=== PATIENT | female | born 1995 | race Caucasian/White ===

== ENCOUNTER 2017-04-30 17:58 | Emergency (ER) | payer SELFPAY ==
[~2017-04-30] VITALS: Ht 162.6 cm; Wt 105.2 kg
[~2017-04-30 17:58] MED LIST: AMOX500T10 PO; HYDR-4309 PO; LEVO-3 PO; METF-410 PO; NAPR375T44 PO; ONDA4TAB97 PO; SULF-198 PO
--- NOTE | 2017-04-30 18:01 | ER Report ---
History and Physical Time Seen By MD: 18:01 HPI/ROS CHIEF COMPLAINT: Right lower dental pain HISTORY OF PRESENT ILLNESS: 21-year-old female presents ambulatory to the ER complaining of right lower dental pain for 3 days. She notes no fever, chills or difficulty swallowing. She has a filling in the tooth at position #31. She notes a dull 6/10 throbbing pain. She's been taking Tylenol without relief. 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 She has an allergy to tramadol. She is also requesting a refill of her seizure medication gabapentin 1200 mg by mouth twice a day. REVIEW OF SYSTEMS: Respiratory: No cough, no dyspnea. Cardiovascular: No chest pain, no palpitations. Gastrointestinal: No vomiting, no abdominal pain. Musculoskeletal: No back pain. Allergies: Coded Allergies: amoxicillin (Verified Allergy, Intermediate, HIVES, 04/30/17) naproxen (Verified Allergy, Intermediate, 04/30/17) EYES SWELL UP tramadol (Verified Allergy, Intermediate, HIVES, 04/30/17) Home Meds Active Scripts Oxycodone Hcl/Acetaminophen (PERCOCET 5-325 MG TABLET) 1 Each Tablet, 1 EACH PO Q4-6H Y for PAIN, #10 Prov:NATALIIA HAYS DO 04/30/17 Clindamycin Hcl (CLINDAMYCIN HCL) 300 Mg Capsule, 300 MG PO TID for infection, # 4030 CAPSULE Prov:NATALIIA HAYS Tyler DO 04/30/17 Gabapentin (GABAPENTIN) 600 Mg Tablet, 1200 MG PO BID for seizure prevention, # 120 Prov:NATALIIA HAYS DO 04/30/17 Reported Medications Warfarin Sodium (WARFARIN SODIUM) 7.5 Mg Tablet, 7.5 MG PO QDAY, TAB 04/30/17 Gabapentin (GABAPENTIN) 300 Mg Capsule, 600 MG PO TID, CAPSULE 04/30/17 Metformin Hcl (METFORMIN HCL) 500 Mg Tablet, 1 TAB PO QDAY, TAB 04/09/17 Levothyroxine Sodium (LEVOTHYROXINE SODIUM) 100 Mcg Tablet, 100 MCG PO QDAY, TAB 04/09/17 Discontinued Scripts Amoxicillin 500 Mg Tab (AMOXICILLIN 500 MG TAB) 500 Mg Tablet, 2 TAB PO DAILY, #20 TAB Prov:KATHI FRANKLINP-BC 03/13/17 Ondansetron Hcl (ZOFRAN) 4 Mg Tablet, 4 MG PO Q8H for Nausea, #15 TAB 0 Refills Prov:AMANDA JAMISON MD 12/20/16 Naproxen (NAPROXEN) 375 Mg Tablet, 375 MG PO TID for PAIN, #15 TAB 0 Refills Prov:AMANDA JAMISON MD 12/20/16 Past Medical/Surgical History Patient has a past medical surgical history of seizures, migraines, DVTs, asthma , sleep apnea, one kidney, right leg fracture, low back injury, back pain, type II diabetes, appendectomy, tonsillectomy. Reviewed Nurses Notes: Yes Old Medical Records Reviewed: Yes Hx Substance Use Disorder: No Hx Alcohol Use: No Constitutional Vital Sign - Last 24 Hours 04/30/17 18:02 Temp 97.4 Pulse 96 Resp 14 B/P (MAP) 121/76 Pulse Ox 93 O2 Delivery Room Air Physical Exam Vital signs stable, afebrile, pulse ox normal General Appearance: The patient is alert, has no immediate need for airway protection and no current signs of toxicity. Mild distress HEENT: Pupils equal and round no injection. TMs normal, TMJs nontender. Examination of the oropharynx reveals a tooth with a large filling at position # 31. There is no surrounding gum inflammation. The tooth is tender on percussion with a tongue blade. There is no other oral pharyngeal swelling noted. Respiratory: Chest is non tender, lungs are clear to auscultation. Cardiac: regular rate and rhythm Musculoskeletal: Neck: Neck is supple and non tender. No induration. Neck tissues or lymphadenopathy noted Extremities have full range of motion and are non tender. Skin: No rashes or lesions. DIFFERENTIAL DIAGNOSIS: After history and physical exam differential diagnosis was considered for toothache, dental abscess, TMJ disorder, Robert myelitis of the jaw, lymphadenopathy. Medical Decision Making ED Course/Re-evaluation ED Course Patient was admitted to an examination room. H&P was done. The differential diagnoses was considered. On clinical examination, patient appears to have dental pain in the right lower jaw. There is tenderness with percussion of the tooth. There is no surrounding inflammation. There is no induration of the neck tissues on examination of the anterior cervical region. Patient unfortunately is unable take NSAIDs due to her chronic lifelong warfarin therapy for recurrent DVT. She's been unsuccessful getting relief with Tylenol. She is given a limited supply of Percocet for temporary pain relief. She has an allergy to amoxicillin. To be given clindamycin. She is advised to follow-up with her dentist as soon as possible. Patient was given a refill of her gabapentin. Decision to Disposition Date: Apr 30, 2017 Decision to Disposition Time: 18:15 Depart Departure Latest Vital Signs Vital Signs Date Time Temp Pulse Resp B/P (MAP) Pulse Ox O2 Delivery O2 Flow Rate FiO2 04/30/17 18:02 97.4 96 14 121/76 93 Room Air Impression: Primary Impression: Pain, dental Additional Impression: Seizure disorder Condition: Improved Disposition: HOME OR SELF-CARE Referrals: SAPPHIRE ORTIZ MD, FARRUKH MD New Scripts Oxycodone Hcl/Acetaminophen (PERCOCET 5-325 MG TABLET) 1 Each Tablet 1 EACH PO Q4-6H Y for PAIN, #10 Prov: NATALIIA HAYS DO 04/30/17 Clindamycin Hcl (CLINDAMYCIN HCL) 300 Mg Capsule 300 MG PO TID for infection, #4030 CAPSULE Prov: NATALIIA HAYS DO 04/30/17 Gabapentin (GABAPENTIN) 600 Mg Tablet 1200 MG PO BID for seizure prevention, #120 Prov: NATALIIA HAYS DO 04/30/17 Patient Instructions: Recurrent Seizures in Adults (ED), Toothache (ED) Additional Instructions: Apply warm compresses to your jaw area Follow-up with your dentist as soon as possible Get established with the primary care doctors listed on her paperwork Problem Qualifiers NATALIIA HAYS DO Apr 30, 2017 18:01
[2017-04-30 18:02] VITALS: BP 121/76
[2017-04-30] MEDS ORDERED: WARF7.5T32 PO (18:08)
[2017-04-30] MEDS ORDERED: GABA-549 PO (18:08)
[2017-04-30] MEDS ORDERED: GABA-503 PO (18:18)
[2017-04-30] MEDS ORDERED: CLIN300C99 PO (18:18)
[2017-04-30] MEDS ORDERED: OXYC-865 PO (18:18)
== END 2017-04-30 18:33 | disposition home or self-care (01) ==
LOC: ER 18:02
DX: K08.89 Other specified disorders of teeth and supporting structures (principal); G40.909 Epilepsy, unspecified, not intractable, without status epilepticus; Z79.01 Long term (current) use of anticoagulants
CPT/HCPCS: 99282

== ENCOUNTER 2017-05-18 15:55 | Emergency (ER) | payer MEDICARE, MEDICAID ==
[~2017-05-18] VITALS: Ht 162.6 cm; Wt 152.9 kg
[~2017-05-18 15:55] MED LIST changes: +CLIN300C99 PO; +GABA-503 PO; +GABA-549 PO; +OXYC-865 PO; +WARF7.5T32 PO
--- NOTE | 2017-05-18 16:03 | ER Report ---
History and Physical Time Seen By MD: 16:02 Hx. of Stated Complaint: UPPER LEFT DENTAL PAIN FOR 3 DAYS. HPI/ROS CHIEF COMPLAINT: Tooth pain HISTORY OF PRESENT ILLNESS: 21-year-old female patient presents to emergency room with complaint of tooth pain. Patient states she's been having pain for last 3 days. She states that she does not have a cavity. She states she does have increased pain with temperature extremes. She's been able to chew with food on the right side of her mouth. She denies having any fevers, chills, nausea, vomiting or diarrhea. She states she's taken Tylenol for this with no improvement. Patient does have an appointment with a dentist on 15 June. Allergies: Coded Allergies: amoxicillin (Verified Allergy, Intermediate, HIVES, 05/18/17) naproxen (Verified Allergy, Intermediate, 05/18/17) EYES SWELL UP tramadol (Verified Allergy, Intermediate, HIVES, 05/18/17) Home Meds Active Scripts Clindamycin Hcl (CLINDAMYCIN HCL) 300 Mg Capsule, 300 MG PO Q6H, #40 CAPSULE Prov:ALESSANDRA SANTO 05/18/17 Reported Medications Metformin Hcl (METFORMIN HCL) 500 Mg Tablet, 1 TAB PO BID, TAB 05/18/17 Gabapentin (GABAPENTIN) 300 Mg Capsule, 600 MG PO BID, CAPSULE 05/18/17 Warfarin Sodium (WARFARIN SODIUM) 7.5 Mg Tablet, 7.5 MG PO QDAY, TAB 04/30/17 Levothyroxine Sodium (LEVOTHYROXINE SODIUM) 100 Mcg Tablet, 100 MCG PO QDAY, TAB 04/09/17 Discontinued Reported Medications Gabapentin (GABAPENTIN) 300 Mg Capsule, 600 MG PO TID, CAPSULE 04/30/17 Metformin Hcl (METFORMIN HCL) 500 Mg Tablet, 1 TAB PO QDAY, TAB 04/09/17 Discontinued Scripts Oxycodone Hcl/Acetaminophen (PERCOCET 5-325 MG TABLET) 1 Each Tablet, 1 EACH PO Q4-6H Y for PAIN, #10 Prov:NATALIIA HAYS DO 04/30/17 Clindamycin Hcl (CLINDAMYCIN HCL) 300 Mg Capsule, 300 MG PO TID for infection, # 4030 CAPSULE Prov:NATALIIA HAYS DO 04/30/17 Gabapentin (GABAPENTIN) 600 Mg Tablet, 1200 MG PO BID for seizure prevention, # 120 Prov:NATALIIA HAYS DO 04/30/17 Past Medical/Surgical History Patient has a past medical history of seizures, migraines, DVT, asthma, sleep apnea, cholecystitis, one kidney, right leg fracture, back pain, diabetes, hypothyroidism. Patient has surgical history of tonsillectomy, appendectomy, cardiac surgery. Reviewed Nurses Notes: Yes Hx Substance Use Disorder: No Hx Alcohol Use: No Constitutional Vital Sign - Last 24 Hours 05/18/17 05/18/17 15:58 17:18 Temp 97.3 Pulse 102 100 Resp 18 B/P (MAP) 138/100 131/71 (91) Pulse Ox 89 91 O2 Delivery Room Air Room Air Physical Exam General appearance: Alert no distress. Respiratory: Chest is non tender, lungs are clear to auscultation. Cardiac: Regular rate and rhythm. ENT: Patient has tenderness to tooth #10. Does appear to be chipped along the top. There is no erythema noted along the gumline. DIFFERENTIAL DIAGNOSIS: After history and physical exam differential diagnosis was considered for dental pain, tooth infection. Medical Decision Making Data Points Laboratory Hematology Test 05/18/17 16:10 Prothrombin Time 15.1 seconds (12.0-14.4) Prothromb Time International Ratio 1.18 Chemistry Test 05/18/17 16:10 Prothrombin Time 15.1 seconds (12.0-14.4) Prothromb Time International Ratio 1.18 Coagulation Test 05/18/17 16:10 Prothrombin Time 15.1 seconds Prothromb Time International Ratio 1.18 ED Course/Re-evaluation ED Course Patient was admitted to examine, history and physical were obtained. Differential diagnoses were considered. On examination patient is complaining of pain to tooth #10. Patient states she's been taking Coumadin in the past. She states she takes it everyday. An INR was checked because she states that has not been checked recently. The INR came back at 1.18. I again spoke with patient's she states that she has been taking. I did request records from [facility], there was indication the patient had a DVT but again that was reported to them by the patient, nothing diagnosed during that visit. As a result of that we will go ahead and have her continue with the Coumadin 7.5, she is to take clindamycin 300 mg one tablet 4 times a day for the next 10 days. I would like her to follow-up with her dentist. We will not be prescribing her any pain medication as she had received a prescription just 5 days ago for 20 of the [place] 5/325. I discussed this with the patient who verbalized understanding and agreement. Decision to Disposition Date: May 18, 2017 Decision to Disposition Time: 16:14 Depart Departure Latest Vital Signs Vital Signs Date Time Temp Pulse Resp B/P (MAP) Pulse Ox O2 Delivery O2 Flow Rate FiO2 05/18/17 17:18 100 131/71 (91) 91 Room Air 05/18/17 15:58 97.3 18 Impression: Primary Impression: Pain, dental Condition: Improved Disposition: HOME OR SELF-CARE New Scripts Clindamycin Hcl (CLINDAMYCIN HCL) 300 Mg Capsule 300 MG PO Q6H, #40 CAPSULE Prov: ALESSANDRA SANTO 05/18/17 Patient Instructions: Toothache (ED) Additional Instructions: You may take Tylenol as well as pain medication was prescribed 5 days ago as needed for pain. Rinse mouth with warm salt water after every meal. Eat soft foods. Follow up with your dentist as soon as possible, call to make an appointment. Continue with your Coumadin. Follow up with your Primary care provider in the next week. I have not been able to get the medical records from [place] and so we will continue with what you are currently doing. Return to the ER if you are having any shortness of breath, increasing pain or swelling in the leg. ALESSANDRA SANTO May 18, 2017 16:03
[2017-05-18] MEDS ORDERED: GABA-549 PO (16:04)
[2017-05-18] MEDS ORDERED: METF-410 PO (16:05)
[2017-05-18 16:33] LABS: INR 1.18
[2017-05-18] MEDS ORDERED: CLIN300C99 PO (16:43)
[2017-05-18 17:18] VITALS: BP 131/71
== END 2017-05-18 17:18 | disposition home or self-care (01) ==
LOC: ER 16:00
DX: K08.89 Other specified disorders of teeth and supporting structures (principal); Z79.01 Long term (current) use of anticoagulants
CPT/HCPCS: 36415; 85610; 99282

== ENCOUNTER 2017-08-14 16:22 | Emergency (ER) | payer MEDICARE, MEDICAID ==
[~2017-08-14 16:22] MED LIST changes: +WARF7.5T13 PO; -WARF7.5T32 PO
[2017-08-14 16:29] VITALS: BP 153/100
[2017-08-14] MEDS ORDERED: LEVO-3 PO (16:32)
[2017-08-14] MEDS ORDERED: AMIT150T21 PO (16:32)
[2017-08-14] MEDS ORDERED: TRAZ150T8 PO (16:32)
[2017-08-14] MEDS ORDERED: WARF5TAB23 PO ×2 (16:32→17:38)
[2017-08-14] MEDS ORDERED: DIVSR125 PO (16:32)
[2017-08-14] MEDS ORDERED: DIVA500T98 PO (16:32)
--- NOTE | 2017-08-14 16:33 | ER Report ---
History and Physical Time Seen By MD: 16:27 HPI/ROS CHIEF COMPLAINT: left hip pain after a fall HISTORY OF PRESENT ILLNESS: Pt states on tuesday she slipped on her wet kitchen floor. Pt denies hitting her head. pt landed on her left hip and buttocks. Pt has had pain in the left hip ever since the fall. PT denies knee pain. Pt has been using motrin and tylenol for the pain but it is not working. No fevers. No chills. no abdominal pain. Pt denies knee pain. Pt has no bruising with the fall. Pt is on coumadin for hx of dvt but ran out of her coumadin on tuesday and does not have a refil or an appt with her doctor to obtain a refil. Last DVT was december REVIEW OF SYSTEMS: Constitutional: No fever, no chills. Eyes: No discharge. ENT: No sore throat. Cardiovascular: No chest pain, no palpitations. Respiratory: No cough, no shortness of breath. Gastrointestinal: No abdominal pain, no vomiting. Genitourinary: No hematuria. Musculoskeletal: No back pain + L hip pain Skin: No rashes. Neurological: No headache. no numbness Allergies: Coded Allergies: amoxicillin (Verified Allergy, Intermediate, HIVES, 05/18/17) naproxen (Verified Allergy, Intermediate, 05/18/17) EYES SWELL UP tramadol (Verified Allergy, Intermediate, HIVES, 05/18/17) Home Meds Reported Medications Levothyroxine Sodium (LEVOTHYROXINE SODIUM) 100 Mcg Tablet, 300 MCG PO QDAY, TAB 08/14/17 Trazodone Hcl (TRAZODONE HCL) 150 Mg Tablet, 150 MG PO QHS 08/14/17 Divalproex Sodium (DEPAKOTE) 500 Mg Tablet.dr, 2500 MG PO BID, TAB 08/14/17 Warfarin Sodium (WARFARIN SODIUM) 5 Mg Tablet, 10 MG PO QDAY, TAB 08/14/17 Amitriptyline Hcl (AMITRIPTYLINE HCL) 150 Mg Tablet, 300 MG PO QHS, TAB 08/14/17 Metformin Hcl (METFORMIN HCL) 500 Mg Tablet, 1 TAB PO BID, TAB 05/18/17 Gabapentin (GABAPENTIN) 300 Mg Capsule, 600 MG PO BID, CAPSULE 05/18/17 Discontinued Reported Medications Divalproex Sodium (DEPAKOTE) 125 Mg Tab, 125 MG PO BID, TAB 08/14/17 Warfarin Sodium (WARFARIN SODIUM) 7.5 Mg Tablet, 7.5 MG PO QDAY, TAB 04/30/17 Levothyroxine Sodium (LEVOTHYROXINE SODIUM) 100 Mcg Tablet, 100 MCG PO QDAY, TAB 04/09/17 Discontinued Scripts Clindamycin Hcl (CLINDAMYCIN HCL) 300 Mg Capsule, 300 MG PO Q6H, #40 CAPSULE Prov:ALESSANDRA SANTO HRIS ADMINISTRATOR 05/18/17 Past Medical/Surgical History Pmhx: seizure, bipolar, born with one kidney, dm2, dvt Pshx: non contrib Reviewed Nurses Notes: Yes Old Medical Records Reviewed: Yes Hx Substance Use Disorder: No Hx Alcohol Use: No Constitutional Vital Sign - Last 24 Hours 08/14/17 16:29 Temp 97.8 Pulse 94 Resp 18 B/P (MAP) 153/100 Pulse Ox 91 O2 Delivery Room Air Physical Exam General Appearance: The patient is alert, has no immediate need for airway protection and no signs of toxicity. Eyes: Pupils equal and round no pallor or injection, EOMI ENT: no pharyngeal erythema or exudates, Mucous membranes are moist Respiratory: There are no retractions, lungs are clear to auscultation. Cardiovascular: Regular rate and rhythm. pulses are equal and symmetrical Gastrointestinal: Abdomen is soft and non tender, no masses, bowel sounds normal, no guarding, no rigidity or rebound Neurological: Cranial nerves II-XII grossly intact, no sensory or motor loss Skin: Warm and dry, no rashes, No ecchymosis identified on left hip of pelvis area Musculoskeletal: Neck is supple non tender, no vertebral tenderness upper extremities are non tender and have FROM, R lower extremity non tender and FROM; + point tender over left greater trochanter on Left however no shortening and no obvious deformitty or swelly and has have full range of motion. DIFFERENTIAL DIAGNOSIS: After history and physical exam differential diagnosis was considered for hip contusion, hip fx, hip dislocation Medical Decision Making Data Points Laboratory Hematology Test 08/14/17 16:42 Prothrombin Time 12.4 seconds (12.0-14.4) Prothromb Time International Ratio 0.93 Chemistry Test 08/14/17 16:42 Prothrombin Time 12.4 seconds (12.0-14.4) Prothromb Time International Ratio 0.93 Coagulation Test 08/14/17 16:42 Prothrombin Time 12.4 seconds Prothromb Time International Ratio 0.93 ED Course/Re-evaluation ED Course Pt asking for a script for her coumadin. Pt states she is on 10mg daily. has not been taking it since she ran out on Tuesday. Will check her current INR since it has not been checked. Will xray her hip. PT did drive to ED and was able to get in and out of car. 08/14/2017 4:53:39 pm Reviewed pts [facility] board of pharmacy controlled substance list. Pt did recieve two narcotics at the begining of july but was for low quantity of 8 and 10 pills. 08/14/2017 5:33:08 pm Spoke with pt at length about her inr level. States that she last had it tested in May. PT states she will call her doctor for follow up but asked me for a week or two of 10mg warfarin until she can get in. Decision to Disposition Date: Aug 14, 2017 Decision to Disposition Time: 17:32 Depart Departure Latest Vital Signs Vital Signs Date Time Temp Pulse Resp B/P (MAP) Pulse Ox O2 Delivery O2 Flow Rate FiO2 08/14/17 16:29 97.8 94 18 153/100 91 Room Air Impression: Primary Impression: Hip pain, left Additional Impression: Fall Condition: Condition Unchanged Disposition: HOME OR SELF-CARE Referrals: [facility] New Scripts Warfarin Sodium (WARFARIN SODIUM) 5 Mg Tablet 5 MG PO QDAY, #20 TAB Prov: YOHAN WALTERS DO 08/14/17 Hydrocodone Bit/Acetaminophen (HYDROCODON-ACETAMINOPHEN 5-325) 1 Each Tablet 1 EACH PO Q4-6H Y for PAIN, #10 TAB Prov: YOHAN WALTERS DO 08/14/17 Patient Instructions: Contusion in Adults (GEN) Additional Instructions: Follow up with your family doctor this week to have your warfarin level (INR) checked and your script refilled based on your level. Tylenol 650mg every 6 hours as needed for pain. Lortab one every 6 hours for severe pain. Use a heating pad or ice to your hip. If pain continues follow up with orthopedics. Problem Qualifiers Additional Impression: Fall Encounter type: initial encounter Qualified Codes: W19.XXXA - Unspecified fall, initial encounter YOHAN WALTERS DO Aug 14, 2017 16:33
[2017-08-14 16:55] LABS: INR 0.93
--- NOTE | 2017-08-14 17:28 | RADIOLOGY IMAGING REPORT ---
FACILITY: [facility] PATIENT NAME: Kwame Justin : 1995 MR: [id number] V: [id number] EXAM DATE: ORDERING PHYSICIAN: YOHAN WALTERS TECHNOLOGIST: Location: [facility] Patient: Kwame Justin : 1995 Visit/Account:[id number] Date of Sevice: 08/14/2017 INDICATION: fell on left hip Tuesday; pain. DATE: 08/14/2017 5:15 PM. TECHNIQUE: HIP LEFT COMPARISON: No relevant comparison FINDINGS: Soft tissues limit evaluation. The pelvic ring appears intact. No conspicuous fracture or d islocation. IMPRESSION: No fracture identified. Report Dictated By: Jhoan Lowry MD at 08/14/2017 5:15 PM Report E-Signed By: Jhoan Lowry MD at 08/14/2017 5:22 PM [id number]
[2017-08-14] MEDS ORDERED: ACET/HYDROC 5/325MG TH ER ONLY 2 TAB/BOTTLE PO ONE (17:35)
[2017-08-14] MEDS ORDERED: WARFARIN SOD 10 MG TAB PO ONE (17:35)
[2017-08-14] MEDS ORDERED: LOR5/325 PO (17:38)
[2017-08-14] MEDS ORDERED: WARFARIN SOD 5 MG TAB ONE (17:49)
== END 2017-08-14 17:50 | disposition home or self-care (01) ==
LOC: ER 16:46
DX: M25.552 Pain in left hip (principal); Z86.718 Personal history of other venous thrombosis and embolism; Z79.01 Long term (current) use of anticoagulants
CPT/HCPCS: 73502; 85610; 99283; A9270